=== PATIENT | male | born 1990 | race Caucasian/White ===

== ENCOUNTER 2017-08-31 20:20 | Emergency (ER) | payer BC ==
[~2017-08-31] VITALS: Ht 198.1 cm; Wt 139.6 kg
[2017-08-31 20:49] LABS: HEMATOCRIT 42.3 % (38.0-50.0); HEMOGLOBIN 14.2 G/DL (12.5-16.6); MCHC 33.6 G/DL (30.0-36.0); MCV 83.4 FL (86-99); PLATELET COUNT 243 K/uL (156-360); RBC DIS.WIDTH-SD 39.5 % (39-53); RED BLOOD COUNT 5.07 M/uL (4.00-5.50); WHITE BLOOD COUNT 10.8 K/uL (4.1-10.2)
[2017-08-31 21:07] LABS: CHLORIDE 106 mEq/L (99-109); POTASSIUM 3.9 mEq/L (3.7-5.4); SODIUM 140 mEq/L (136-147)
[2017-08-31 21:09] LABS: GLUCOSE 123 mg/dL (70-99)
[2017-08-31 21:13] LABS: GFR ESTIMATE (CALCULATED) > 59 mL/min/ (58.99-99999)
[2017-08-31 21:14] LABS: UREA NITROGEN (BUN) 17 mg/dL (9-23)
[2017-08-31 21:27] LABS: APPEARANCE CLOUDY ((CLEAR)); BILIRUBIN NEGATIVE; BLOOD LARGE; COLOR YELLOW ((YELLOW)); GLUCOSE (STRIP) NEGATIVE; KETONES NEGATIVE; LEUKOCYTES NEGATIVE; NITRITE NEGATIVE; PROTEIN (STRIP) 100; SPECIFIC GRAVITY 1.027 (1.000-1.030); UROBILINOGEN 0.2 MG/DL (0.2-1.0)
[2017-08-31 21:55] LABS: RED BLOOD CELLS TNTC /HPF (0-5)
[2017-08-31 21:56] LABS: BACTERIA 2+ /HPF; EPITHELIAL CELLS 1+ /HPF; MUCUS 2+ /LPF; UCUL ADDED? YES; WHITE BLOOD CELLS 0-5 /HPF (0-5)
[2017-08-31 22:41] LABS: APPEARANCE CLOUDY ((CLEAR)); BILIRUBIN NEGATIVE; BLOOD LARGE; COLOR YELLOW ((YELLOW)); GLUCOSE (STRIP) NEGATIVE; KETONES NEGATIVE; LEUKOCYTES NEGATIVE; NITRITE NEGATIVE; PROTEIN (STRIP) 30; UROBILINOGEN 0.2 MG/DL (0.2-1.0)
[2017-08-31 22:47] LABS: BACTERIA NONE SEEN /HPF; EPITHELIAL CELLS RARE /HPF; MUCUS TRACE /LPF; RED BLOOD CELLS TNTC /HPF (0-5); UCUL ADDED? YES; WHITE BLOOD CELLS 0-5 /HPF (0-5)
[2017-08-31] MEDS ORDERED: MOTRIN800 MG PO (22:56)
[2017-08-31] MEDS ORDERED: ZOFRAN4 MG PO (22:56)
[2017-08-31] MEDS ORDERED: FLOMAX0.4 MG PO (22:56)
[2017-08-31 23:02] VITALS: BP 140/92
== END 2017-08-31 23:04 | disposition home or self-care (01) ==
LOC: EME 20:20
PROVIDERS: Nurse Practitioner Family
DX: R10.9 Unspecified abdominal pain (principal); N20.1 Calculus of ureter; D72.829 Elevated white blood cell count, unspecified; R31.9 Hematuria, unspecified; R30.0 Dysuria; K42.9 Umbilical hernia without obstruction or gangrene; K76.0 Fatty (change of) liver, not elsewhere classified; M51.36 Other intervertebral disc degeneration, lumbar region
CPT/HCPCS: 74176; 80048; 81003; 85027; 87086; 99281; 99284; J1885